=== PATIENT | male | born 1960 | race Caucasian/White ===

== ENCOUNTER 2016-12-24 21:16 | Emergency (ER) | payer OTHER ==
[~2016-12-24] VITALS: Ht 177.8 cm; Wt 86.3 kg
[~2016-12-24 21:16] MED LIST: ACET-1138 PO; ASPEC81 PO; CLB200 PO; MULT-506 PO; RXC5 PO; SNK PO
[2016-12-24 21:24] VITALS: TEMP 36.8; Ht 177.8 cm; Wt 86.3 kg
[2016-12-24] MEDS ORDERED: XYLOCAINE 1%/SOD BICARB 20 ML VIAL INFIL ONE (21:45)
[2016-12-24] MEDS ORDERED: DIPHTHERIA/TETANUS/PERTUSSIS 0.5 ML SYR/VIAL IM. ONE (21:45)
[2016-12-24] MEDS ORDERED: MoRPHine SULFATE 10 MG/ML CARP/VIAL IV STA (22:43)
[2016-12-24] MEDS ORDERED: ONDANSETRON INJ 2 MG/ML 2 ML VIAL IV STA (22:43)
--- NOTE | 2016-12-24 22:43 | DIAGNOSTIC IMAGING REPORT ---
RIGHT HAND 3 VIEWS HISTORY: R HAND CRUSH INJURY Right COMPARISON: None. FINDINGS: There is no fracture or dislocation. Soft tissue laceration between the first and second metacarpals. No radiopaque foreign bodies. IMPRESSION: Soft tissue laceration between the first and second metacarpals. Electronically signed by: Naif Parker M.D. 12/24/2016 10:42 PM Dictated Date/Time: 12/24/2016 10:41 PM
[2016-12-24 23:39] VITALS: BP 132/72; PULSE 74; O2SAT 98
--- NOTE | 2016-12-25 | EMERGENCY ROOM VISIT NOTE ---
History First contact with patient: 21:38 Chief Complaint: LACERATION/CUT (SUT/DERMABOND) Stated Complaint: CUT RT HAND History of Present Illness The patient is a 56 year old male who presents to the Emergency Room with complaints of a right hand laceration and crush injury to the hand while attempting to help his son carrying a refrigerator down steps. The patient reports generalized pain around the base of the index and third finger. He denies any paresthesias or numbness of the hand or fingers. The patient is uncertain of his last tetanus immunization. The patient is [id number] , and rates his pain a 4 out of 10. Review of Systems 10 system review was performed and was negative except for pertinent positives and negatives as indicated in history of present illness Past Medical/Surgical History Medical Problems: (1) HLD (hyperlipidemia) (2) Incidental lung nodule Surgical Problems: (1) H/O splenectomy (2) Hx of vascular surgery (3) Post-operative state (4) S/P cholecystectomy Family History Diabetes mellitus Social History Smoking Status: Never Smoker Alcohol Use: none Marital Status: Housing Status: lives with family Occupation Status: employed Current/Historical Medications No Active Prescriptions or Reported Meds Allergies Coded Allergies: No Known Allergies (Verified , 12/24/16) Physical Exam Vital Signs Date Time Temp Pulse Resp B/P Pulse Ox O2 Delivery O2 Flow Rate FiO2 12/24/16 23:39 74 20 132/72 98 12/24/16 21:24 36.8 101 18 158/93 93 Room Air Physical Exam CONSTITUTIONAL: Healthy and well nourished. Alert and oriented X 3 with positive affect. HEENT: Normocephalic, atraumatic. Pupils equal, round and reactive. NECK: Full active range of motion without discomfort. MUSCULOSKELETAL: Examination of the right hand shows a 2 cm curvilinear laceration without active bleeding. It is situated over the radial aspect of the second metacarpal. It does not extend into the webspace. Capillary refill of the fingers is less than 2 seconds. INTEGUMENTARY: No rash or other significant dermatologic conditions noted. NEUROLOGIC: Right index finger and thumb are sensory intact. Medical Decision & Procedures ER Provider Diagnostic Interpretation: My interpretation of right hand x-rays does not show any acute fractures or dislocations. No radiopaque foreign bodies appreciated. Radiologist report is as follows: RIGHT HAND 3 VIEWS HISTORY: R HAND CRUSH INJURY Right COMPARISON: None. FINDINGS: There is no fracture or dislocation. Soft tissue laceration between the first and second metacarpals. No radiopaque foreign bodies. IMPRESSION: Soft tissue laceration between the first and second metacarpals. Medications Administered Medications (Trade) Dose Ordered Sig/Santos Route Start Time Stop Time Status Last Admin Dose Admin Diphtheria/ Pertussis/Tetanus Vacc (Adacel Inj) 0.5 ml ONCE ONCE IM. 12/24/16 21:45 12/24/16 21:46 DC 12/24/16 23:14 0.5 ML Procedure Laceration repair was performed under local anesthesia after receiving verbal consent from the patient. Using buffered 1% lidocaine without epinephrine, good local anesthesia was administered. The wound was then peripherally cleansed with iodine, then irrigated with 250 mL of normal saline. Exploration of the wound does not show any laceration of the digital artery or nerve. The wound was then approximated using 5-0 nylon simple interrupted sutures. Bacitracin dressing was applied. The patient was administered Adacel IM. ED Course Patient history and physical exam were performed. Nurse's notes were reviewed. The patient refused any analgesics. X-rays of the right hand were normal. Laceration repair was performed under local anesthesia. The patient was provided additional verbal and written wound care instructions. Ice and elevation for swelling. Ibuprofen or Tylenol as needed for pain. Suture removal in 12-14 days, or seek reevaluation sooner for any signs of wound infection. The patient was happy with plan of care, voiced understanding of all discharge instructions, and denied any pain at the time of discharge. Impression Primary Impression: Laceration of right hand Departure Information Prescriptions No Active Prescriptions or Reported Meds Referrals Iraj Mcdowell D.OBerna (PCP) Forms HOME CARE DOCUMENTATION FORM, IMPORTANT VISIT INFORMATION Patient Instructions [facility] Problem Qualifiers Primary Impression: Laceration of right hand Encounter type: initial encounter Foreign body presence: without foreign body Qualified Codes: S61.411A - Laceration without foreign body of right hand , initial encounter
== END 2016-12-24 23:40 | disposition home or self-care (01) ==
LOC: C.EDB 21:18 → C.EDD 23:40
DX: S61.411A Laceration without foreign body of right hand, initial encounter (principal); X58.XXXA Exposure to other specified factors, initial encounter; Z23 Encounter for immunization; E78.5 Hyperlipidemia, unspecified; Z90.49 Acquired absence of other specified parts of digestive tract; Z98.890 Other specified postprocedural states; Z83.3 Family history of diabetes mellitus

== ENCOUNTER 2017-05-12 18:15 | Emergency (ER) | payer OTHER ==
[~2017-05-12] VITALS: Ht 177.8 cm; Wt 85.9 kg
[2017-05-12 18:24] VITALS: TEMP 36.6; Ht 177.8 cm; Wt 85.9 kg
[2017-05-12] MEDS ORDERED: LIDOCAINE/EPINEPHRINE 1% 20 ML VIAL ONE (18:46)
--- NOTE | 2017-05-12 19:04 | EMERGENCY ROOM VISIT NOTE ---
ED Visit Note First contact with patient: 18:28 CHIEF COMPLAINT: Leg laceration HISTORY OF PRESENT ILLNESS: This 57-year-old male patient presents to the emergency department with his after cutting the right calf with a chainsaw. The bleeding has stopped. Denies weakness or numbness of the right leg or foot. The patient rates the pain as stinging and 5/10. The patient denies any other injuries. The patient's Tetanus shot is up to date. REVIEW OF SYSTEMS: A 6 system review of systems was completed with positives and pertinent negatives listed in the HPI. ALLERGIES: No known drug allergies MEDICATIONS: Reviewed PMH: Otherwise healthy SOCIAL HISTORY: He does not smoke or drink alcohol PHYSICAL EXAM: Vital Signs: Reviewed Nurse's notes, vital signs stable. GENERAL : 57-year-old male, in no acute distress, well-developed, well-nourished. SKIN : There is an 8 cm long macerated laceration on the posterior aspect of the right leg. The edges gape apart with traction. There is a small amount of debris in the wound. There is mild bleeding. There is an approximately 0.5 cm superficial injury to the gastroc muscle. Fascia is visible. Normal dorsi/ plantar flexion of the foot Capillary refill less than 2 seconds. Normal sensation to light and sharp touch. EMERGENCY DEPARTMENT COURSE: I examined the patient. Verbal consent was obtained to perform the procedure. Using sterile technique the wound was cleansed with Betadine. The area was sterilely draped/ 10 ml of 1% buffered lidocaine with epinephrine was used to anesthetize the laceration on the right calf. Once the patient was anesthetized, the wound was copiously irrigated under pressure with sterile saline. The wound was explored and was as described above. The gastroc muscle and subcutaneous tissue were repaired using 3 simple interrupted 4-0 Vicryl sutures. The skin was closed using 12 simple interrupted 4-0 nylon sutures with the wound edges being well approximated. The patient tolerated the procedure well. Hemostasis was achieved. The area was cleaned with sterile saline and dressed with bacitracin ointment and bandage. The patient was instructed on the use of crutches. DIAGNOSIS: leg laceration DISCHARGE INSTRUCTIONS & TREATMENT: Minimal weightbearing on the right foot for the first 5 days. No strenuous activity. Please use crutches to get around. Keep wound clean. It is okay to gently wash the area with soapy water. Do not submerse it in water for long periods of time such as swimming, going in hot tubs or taking baths until the sutures come out. Do not allow any crusting or dried blood to accumulate on sutures. If this occurs, use a 1:1 solution of hydrogen peroxide/water on a Q-tip to clean the wound. Use an antibiotic ointment for 3-4 days, then let wound dry. Suture removal in 14 days. Return sooner for any signs of infection (increasing redness, swelling, drainage). Ice and elevate for swelling and pain. Ibuprofen 600 mg and Tylenol 1000 mg every 6 hrs for pain.
[2017-05-12] MEDS ORDERED: LIDOCAINE HCL 1% 20 ML VIAL ONE (19:41)
[2017-05-12 20:50] VITALS: BP 128/73; PULSE 82; O2SAT 98
== END 2017-05-12 20:51 | disposition home or self-care (01) ==
LOC: C.EDB 18:17 → C.EDD 20:51
DX: S81.811A Laceration without foreign body, right lower leg, initial encounter (principal); S86.121A Laceration of other muscle(s) and tendon(s) of posterior muscle group at lower leg level, right leg, initial encounter; W29.3XXA Contact with powered garden and outdoor hand tools and machinery, initial encounter

== ENCOUNTER 2017-06-03 18:15 | Emergency (ER) | payer OTHER ==
[~2017-06-03] VITALS: Ht 177.8 cm; Wt 85.3 kg
[2017-06-03 18:17] VITALS: TEMP 36.9; Ht 177.8 cm; Wt 85.3 kg
[2017-06-03] MEDS ORDERED: MULT-513 PO (18:40)
[2017-06-03] MEDS ORDERED: OMEG10007 PO (18:40)
--- NOTE | 2017-06-03 18:45 | EMERGENCY ROOM VISIT NOTE ---
ED Visit Note First contact with patient: 18:22 CHIEF COMPLAINT: Suture removal This patient returns to the ED today for removal of sutures that were placed 22 days ago. The patient was seen at [facility] and placed on antibiotics while the sutures were in. He thinks that it is now healing well. Denies any fever or chills. REVIEW OF SYSTEMS: Head: No headache, injury or neck pain. Skin: No rash, new lesions, or masses. General: No fever or chills, fatigue, loss of appetite , or significant recent weight gain or loss. PMH: Unchanged since previous visit SOCIAL HISTORY: Patient lives at home. PHYSICAL EXAM: Vital Signs: Reviewed Nurse's notes. There is a sutured wound on the right calf with no signs of infection. There is no erythema, swelling, or tenderness. EMERGENCY DEPARTMENT COURSE: The sutures were removed without any difficulty and there was no separation of the wound edges. DIAGNOSIS: Healing laceration and suture removal DISCHARGE INSTRUCTIONS AND TREATMENT: Wash any remaining crusts off of the wound today and resume your normal activities.
[2017-06-03 19:05] VITALS: BP 141/109; PULSE 94; O2SAT 94
== END 2017-06-03 19:05 | disposition home or self-care (01) ==
LOC: C.EDB 18:17 → C.EDD 19:05
DX: Z48.02 Encounter for removal of sutures (principal); S81.811D Laceration without foreign body, right lower leg, subsequent encounter; S86.1 Injury of other muscle(s) and tendon(s) of posterior muscle group at lower leg level; W29.3XXD Contact with powered garden and outdoor hand tools and machinery, subsequent encounter

== ENCOUNTER 2021-04-22 15:12 | Inpatient (IN) ==
[2021-04-22 16:09] LABS: Basophils # (auto) 0.02 K/uL (0-0.2); Basophils % (auto) 0.3 %; Hematocrit (blood only) 47.8 % (42-52); Hemoglobin 16.7 g/dL (14.0-18.0); Immature Granulocytes # (auto) 0.02 K/uL (0.00-0.02); Immature Granulocytes % (auto) 0.3 %; Lymphocytes # (auto) 1.78 K/uL (1.2-3.4); Lymphocytes % (auto) 24.2 %; Mean Corpuscular Hemoglobin 31.6 pg (25-34); Mean Corpuscular Hgb Conc 34.9 g/dL (32-36); Mean Corpuscular Volume 90.4 fL (80-100); Mean Platelet Volume 10.5 fL (7.4-10.4); Monocytes # (auto) 0.58 K/uL (0.11-0.59); Monocytes % (auto) 7.9 %; Neutrophils # (auto) 4.95 K/uL (1.4-6.5); Neutrophils % (auto) 67.3 %; Platelet Count 324 K/uL (130-400); RDW Coefficient of Variation 14.3 % (11.5-14.5); RDW Standard Deviation 47.7 fL (36.4-46.3); Red Blood Count 5.29 M/uL (4.7-6.1); White Blood Count 7.35 K/uL (4.8-10.8)
[2021-04-22 16:26] LABS: Alanine Aminotransferase 29 U/L (12-78); Albumin Level 3.4 gm/dl (3.4-5.0); Aspartate Aminotransferase 21 U/L (15-37); BUN Creatinine Ratio 12.2 (10-20); Blood Urea Nitrogen 13 mg/dl (7-18); Carbon Dioxide 23 mmol/L (21-32); Chloride 103 mmol/L (98-107); Creatinine Clr Calc Pharmacy 75.8 ml/min; Est GFR (African American) 89.2 ml/min; Est GFR (Non-African American) 76.9 ml/min; Glucose 103 mg/dl (70-99); Magnesium 1.9 mg/dl (1.8-2.4); Potassium 4.3 mmol/L (3.5-5.1); Sodium 133 mmol/L (136-145)
[2021-04-22 16:31] LABS: Albumin Globulin Ratio 0.9 (0.9-2); Alkaline Phosphatase 51 U/L (45-117); Bilirubin,Total 0.3 mg/dl (0.2-1); Globulin 3.9 gm/dl (2.5-4.0); Total Protein 7.3 gm/dl (6.4-8.2); Troponin I < 0.015 ng/ml (0-0.045)
[2021-04-22 16:32] LABS: Partial Thromboplastin Ratio 1.2; Partial Thromboplastin Time 30.6 Seconds (21.0-31.0); Prothrombin Time 9.8 Seconds (9.0-12.0)
[2021-04-22] MEDS ORDERED: SODIUM CHLORIDE 0.9% 1000ML 1,000 ML IV ONE (18:03)
--- NOTE | 2021-04-22 18:08 | Emergency Department Note ---
History of Present Illness General Chief complaint: Shortness of Breath/Dyspnea Stated complaint: COVID +, COUGH, SOB, LOW O2 Time Seen by Provider: 04/22/21 17:51 Source: patient Mode of arrival: ambulatory Limitations: no limitations History of Present Illness Maximum Pain Intensity: 2 This patient is a 61-year-old male who was diagnosed with Covid this past week and started having symptoms 1 week ago on , comes in after having a low oxygen saturation. He has been coughing a lot he said they called the ambulance when his O2 sat was 86% last night he said he felt well and vital signs look good when they arrived. He has been coughing whitish phlegm. He is a temperature of 100 point something. He said this morning his O2 sat was also low at 87%. Denies shortness of breath he has chest pain with coughing only. He has been drinking fluids. No lower extremity pain or swelling. His did have Covid also. 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 His Covid test was done on April 18 at [facility]. Home Medications Medication Instructions Recorded Confirmed Type multivitamin 1 tab PO DAILY 04/22/21 04/22/21 History xf-9-bas-epa-fish oil-vit D3 300 1 cap PO DAILY 04/22/21 04/22/21 History mg-1,000 mg-1,000 unit capsule (Fish Oil-Vit D3) tamsulosin 0.4 mg capsule 0.4 mg PO DAILY 04/22/21 04/22/21 History Allergies Allergy/AdvReac Type Severity Reaction Status Date / Time No Known Allergies Allergy Verified 12/24/16 22:00 Past Med/Surg History Medical History (Updated 04/23/21 @ 00:57 by Saud Aguero MD) HLD (hyperlipidemia) Incidental lung nodule Surgical History (Updated 04/23/21 @ 00:57 by Saud Aguero MD) H/O splenectomy Hx of vascular surgery "abdominal aortic traumatic tear repair" S/P cholecystectomy Social History Smoking Status: Never smoker Second Hand Exposure: No; Do You Dip or Chew Tobacco: No; Tobacco Cessation Education Requested by Patient: No Hx Alcohol Use: Yes Alcohol type: beer Hx Substance Use: No Preferred Language: Armenian Communication Ability: Effective Career Services Coordinator Required: No Beliefs That Will Affect Care: None Current Living Situation: Spouse Other Information That Helps Us Care for You: No Feels Safe at Home: Yes Safety Concerns: Feels Safe At This Time Assistive Devices: Glasses Review of Systems A total of 10 systems reviewed and were otherwise negative Physical Exam Vital Signs Vital Signs - 24 hr 04/22/21 15:37 04/22/21 18:00 04/22/21 19:00 Temperature 36.8 C 36.7 C Temperature Source Temporal Artery Scan Oral Pulse Rate 109 H 90 Pulse Rate [Apical] 71 Pulse Rhythm [Apical] Regular Respiratory Rate 18 18 20 Respiratory Effort / Characteristics Non-Labored Respiratory Depth Normal Blood Pressure 104/58 L 151/92 H Blood Pressure [Right Arm] 145/102 H Blood Pressure Mean 73 111 Blood Pressure Mean [Right Arm] 116 Pulse Oximetry 94 96 95 Oxygen Delivery Method Room Air Room Air Sepsis Recent Fever Within 48 Hours No Sepsis New/Unexplained Change in Mental Status No Sepsis Action Taken by Nursing No Action Required 04/22/21 20:30 04/22/21 21:02 04/22/21 21:30 Temperature 37.2 C Temperature Source Pulse Rate 92 H 93 H 97 H Pulse Rate [Apical] Pulse Rhythm [Apical] Respiratory Rate 20 24 24 Respiratory Effort / Characteristics Respiratory Depth Blood Pressure 158/109 H 136/96 130/82 Blood Pressure [Right Arm] Blood Pressure Mean 125 109 98 Blood Pressure Mean [Right Arm] Pulse Oximetry 94 95 93 Oxygen Delivery Method Sepsis Recent Fever Within 48 Hours Sepsis New/Unexplained Change in Mental Status Sepsis Action Taken by Nursing General: Well developed well nourished middle-age male who has a dry intermittent cough but in no acute distress, breathing comfortably on room air. Normal speech HEENT: Normal cephalic atraumatic. Pupils are equal round and reactive to light. Extraocular movements are intact. Oropharynx is pink with moist mucous membranes. No swelling of the mouth lips or tongue. Neck: Supple with a midline trachea. No meningeal signs or stiffness. Chest: Normal respiratory effort with no increased work of breathing. Heart: Regular rate and rhythm Abdomen: Soft nontender, nondistended without rebound guarding or rigidity. Extremities: No cyanosis clubbing or edema. No calf tenderness or assymetry Spine/Back. Non tender to palpation. No CVA tenderness Skin: Good turgor without rashes. Neurologic exam: Cranial nerves two through 12 are intact. Motor and sensation are intact and symmetrical throughout. Course Administered Medications Acetaminophen (Acetaminophen 325 Mg Tab) 650 mg PO Q4H PRN PRN Reason: Pain or Fever Stop: 05/23/21 00:00 Last Admin: 04/23/21 00:38 Dose: 650 mg Documented by: [id number] Sodium Chloride (Nss 1000ml) 1,000 mls @ 60 mls/hr IV .[id number] ONE Stop: 04/23/21 16:40 Last Admin: 04/23/21 00:39 Dose: 60 mls/hr Documented by: [id number] Discontinued Medications Sodium Chloride (Nss 1000ml) 1,000 mls @ 999 mls/hr IV .[id number] ONE Stop: 04/22/21 19:03 Last Infusion: 04/22/21 19:51 Dose: 0 mls/hr Documented by: [id number] Admin: 04/22/21 18:14 Dose: 999 mls/hr Documented by: [id number] Magnesium Sulfate/Dextrose (Magnesium Sulfate / D5w) 1 gm in 100 mls @ 50 mls/hr IV ONE STA Stop: 04/22/21 22:56 Last Infusion: 04/22/21 23:48 Dose: 0 mls/hr Documented by: [id number] Admin: 04/22/21 21:04 Dose: 50 mls/hr Documented by: [id number] Ioversol (Optiray 320 125ml) 119 ml IV ONCE ONE Stop: 04/22/21 18:55 Last Admin: 04/22/21 18:54 Dose: 1 ml Documented by: [id number] Levalbuterol HCl (Levalbuterol Tartrate 15 Gm Hfa.Aer.Ad) 2 puffs INH NOW STA Stop: 04/22/21 21:39 Last Admin: 04/22/21 23:17 Dose: 2 puffs Documented by: [id number] Medical Decision Making Differential Diagnosis Covid, pneumonia, hypoxemia, PE, sepsis, complications related to being asplenic, electrolyte or metabolic abnormality Medical Records Attestation: I reviewed the patient's medical records. Home Medications Current Medication List: was personally reviewed by me Laboratory Data Attestation: I reviewed the patient's lab results. Result diagrams: 04/22/21 15:55 04/22/21 15:55 Lab Results 04/22/21 04/22/21 04/22/21 Range/Units 15:55 15:55 15:55 WBC 7.35 (4.8-10.8) K/uL RBC 5.29 (4.7-6.1) M/uL Hgb 16.7 (14.0-18.0) g/dL Hct 47.8 (42-52) % MCV 90.4 (80-100) fL MCH 31.6 (25-34) pg MCHC 34.9 (32-36) g/dL RDW Std Deviation 47.7 H (36.4-46.3) fL RDW Coeff of Jevon 14.3 (11.5-14.5) % Plt Count 324 (130-400) K/uL MPV 10.5 H (7.4-10.4) fL Immature Gran % (Auto) 0.3 % Neut % (Auto) 67.3 % Lymph % (Auto) 24.2 % [place] % (Auto) 7.9 % Eos % (Auto) 0.0 % Baso % (Auto) 0.3 % Neut # (Auto) 4.95 (1.4-6.5) K/uL Lymph # (Auto) 1.78 (1.2-3.4) K/uL [place] # (Auto) 0.58 (0.11-0.59) K/uL Eos # (Auto) 0.00 (0-0.5) K/uL Baso # (Auto) 0.02 (0-0.2) K/uL Immature Gran # (Auto) 0.02 (0.00-0.02) K/uL PT 9.8 (9.0-12.0) Seconds INR 1.0 (0.9-1.1) APTT 30.6 (21.0-31.0) Seconds PTT Ratio 1.2 D-Dimer (0-500) ug/L FEU ABG pH (7.35-7.45) ABG pCO2 (35-46) mmHg ABG pO2 (80-95) mmHg ABG HCO3 (19-24) mmol/L ABG O2 Saturation (90-95) % ABG Base Excess (-9-1.8) mEq/L Michael Test (Pos) Barometric Pressure mm/Hg Oxygen Given Sodium 133 L (136-145) mmol/L Potassium 4.3 (3.5-5.1) mmol/L Chloride 103 (98-107) mmol/L Carbon Dioxide 23 (21-32) mmol/L Anion Gap 7.0 (3-11) BUN 13 (7-18) mg/dl Creatinine 1.03 (0.6-1.4) mg/dl Est Cr Clr Drug Dosing 75.8 ml/min Est GFR ( Amer) 89.2 ml/min Est GFR (Non-Af Amer) 76.9 ml/min BUN/Creatinine Ratio 12.2 (10-20) Glucose 103 H (70-99) mg/dl Lactate (0.4-2.0) mmol/L Calcium 8.0 L (8.5-10.1) mg/dl Magnesium 1.9 (1.8-2.4) mg/dl Total Bilirubin 0.3 (0.2-1) mg/dl AST 21 (15-37) U/L ALT 29 (12-78) U/L Alkaline Phosphatase 51 (45-117) U/L Troponin I < 0.015 (0-0.045) ng/ml Total Protein 7.3 (6.4-8.2) gm/dl Albumin 3.4 (3.4-5.0) gm/dl Globulin 3.9 (2.5-4.0) gm/dl Albumin/Globulin Ratio 0.9 (0.9-2) 04/22/21 04/22/21 04/22/21 Range/Units 15:55 18:21 21:15 WBC (4.8-10.8) K/uL RBC (4.7-6.1) M/uL Hgb (14.0-18.0) g/dL Hct (42-52) % MCV (80-100) fL MCH (25-34) pg MCHC (32-36) g/dL RDW Std Deviation (36.4-46.3) fL RDW Coeff of Jevon (11.5-14.5) % Plt Count (130-400) K/uL MPV (7.4-10.4) fL Immature Gran % (Auto) % Neut % (Auto) % Lymph % (Auto) % [place] % (Auto) % Eos % (Auto) % Baso % (Auto) % Neut # (Auto) (1.4-6.5) K/uL Lymph # (Auto) (1.2-3.4) K/uL [place] # (Auto) (0.11-0.59) K/uL Eos # (Auto) (0-0.5) K/uL Baso # (Auto) (0-0.2) K/uL Immature Gran # (Auto) (0.00-0.02) K/uL PT (9.0-12.0) Seconds INR (0.9-1.1) APTT (21.0-31.0) Seconds PTT Ratio D-Dimer 930 H* (0-500) ug/L FEU ABG pH 7.45 (7.35-7.45) ABG pCO2 31 L (35-46) mmHg ABG pO2 69 L (80-95) mmHg ABG HCO3 21 (19-24) mmol/L ABG O2 Saturation 95.2 H (90-95) % ABG Base Excess -1.7 (-9-1.8) mEq/L Michael Test POS (Pos) Barometric Pressure 736.1 mm/Hg Oxygen Given ROOM AIR Sodium (136-145) mmol/L Potassium (3.5-5.1) mmol/L Chloride (98-107) mmol/L Carbon Dioxide (21-32) mmol/L Anion Gap (3-11) BUN (7-18) mg/dl Creatinine (0.6-1.4) mg/dl Est Cr Clr Drug Dosing ml/min Est GFR ( Amer) ml/min Est GFR (Non-Af Amer) ml/min BUN/Creatinine Ratio (10-20) Glucose (70-99) mg/dl Lactate 1.0 (0.4-2.0) mmol/L Calcium (8.5-10.1) mg/dl Magnesium (1.8-2.4) mg/dl Total Bilirubin (0.2-1) mg/dl AST (15-37) U/L ALT (12-78) U/L Alkaline Phosphatase (45-117) U/L Troponin I (0-0.045) ng/ml Total Protein (6.4-8.2) gm/dl Albumin (3.4-5.0) gm/dl Globulin (2.5-4.0) gm/dl Albumin/Globulin Ratio (0.9-2) Imaging Data Attestation: I personally reviewed and interpreted this imaging study as follows : Radiologist's Impression: Chest X-Ray 04/22/21 15:42 SINGLE VIEW CHEST CLINICAL HISTORY: Dyspnea. FINDINGS: An AP, portable, upright chest radiograph is compared to chest x-ray and chest CT dated 12/12/2018. The cardiomediastinal silhouette is unremarkable noting atherosclerotic calcification of the thoracic aorta. Surgical clips project over the mediastinum. Chronic interstitial thickening is similar to previous. Foci of scarring/atelectasis are again seen throughout both lungs. No airspace consolidation or large pleural effusion is identified. No pneumothorax is seen. The skeletal structures appear osteopenic. There are numerous chronic/healed left-sided rib fractures. IMPRESSION: No acute cardiopulmonary abnormality. ACT 112: Negative or not required by law. Electronically signed by: Jaicel Francis M.D. 04/22/2021 6:35 PM Chest CTA 04/22/21 18:47 CT ANGIOGRAM OF THE CHEST CLINICAL HISTORY: Dyspnea. COMPARISON STUDY: Chest x-ray dated 04/22/2021. Chest CT scans dated 12/12/2018 and 05/13/2016. TECHNIQUE: Following the IV administration of 119 cc of Optiray 320, CT angiogram of the chest was performed from the upper abdomen to the thoracic inlet utilizing the pulmonary embolus protocol. Images are reviewed in the axial, sagittal, and coronal planes. 3-D MIPS images are created and assessed. IV contrast was administered without complication. A dose lowering technique was utilized adhering to the principles of ALARA. CT DOSE: 407.74 mGy.cm FINDINGS: Thyroid: Imaged portions of the thyroid gland are normal in size and attenuation. Thoracic aorta: There is mild atherosclerotic calcification of the thoracic aorta, which is normal in caliber and demonstrates standard 3-vessel arch anatomy. No dissection is seen. Pulmonary vasculature: The pulmonary trunk is normal in caliber. There are no filling defects identified in main, lobar, or segmental pulmonary branches to suggest pulmonary embolus. Heart: The heart is top normal in size and without pericardial effusion. There are coronary artery calcifications. Lungs and pleural spaces: Mild multifocal groundglass consolidation is seen throughout both lungs. This shows a subpleural and lower lobe predominance. No pleural effusion is identified. The trachea and central airways are clear. An 11 mm pleural-based nodule in the left lower lobe on image #91 has modestly increased in size dating back to 2016 and measured 8 mm. Mediastinum: Mildly enlarged mediastinal nodes measure up to 13 mm in short axis. Lakshmi: Enlarged bilateral hilar nodes measure up to 13 mm in short axis. Axillae: There is no axillary lymphadenopathy. Upper abdomen: A normal spleen is not identified. Numerous splenules are seen in the left upper quadrant. There is a tiny hiatal hernia. Partially visualized upper abdominal viscera is within normal limits. Skeletal structures: The skeletal structures are osteopenic. No lytic or blastic bony lesions are seen. There are numerous healed left-sided rib fractures. There is also chronic posttraumatic deformity of the left scapula. IMPRESSION: 1. There is no evidence of pulmonary embolus in the main, lobar, or segmental pulmonary arteries. 2. Multifocal groundglass consolidation is seen throughout both lungs, and is consistent with a multifocal pneumonia. Clinical correlation will be required and radiographic follow-up to resolution is recommended. 3. An 11 mm pleural-based nodule at the left lung base has modestly increased in size dating back to 2016. A follow-up chest CT in 3-4 months time is recommended to document resolution of the pneumonia and for reassessment of this left lower lobe lesion. This is indeterminant, and given the absence of a normal spleen thi s may represent an intrathoracic splenule. 4. No pleural effusion. 5. Mildly enlarged mediastinal and hilar lymph nodes are likely reactive. This can also be reassessed at follow-up. 6. Additional findings as above. ACT 112: Negative or not required by law. Electronically signed by: Jaciel Francis M.D. 04/22/2021 7:57 PM ECG Data Attestation: I personally reviewed and interpreted this ECG as follows: Indication: + chest pain Rate (beats per minute): 96 Rhythm: + normal sinus ECG Intervals/blocks: + Normal QRS, + Normal QT and + Normal SC ECG [place]: + Normal ECG ST segments: + Normal ST segments ECG Findings: no PACs or no PVCs Comparison ECG Date: no prior available MDM Narrative This patient is a 61-year-old male who is diagnosed with Covid on the but has had symptoms for about a week comes in after having low oxygen at home. He has an O2 sat of 96% here and looks well he does have a intermittent cough. I am concerned that he does have a history of a splenectomy. IV access established blood work was obtained including blood cultures and lactic acid. He has no white count. He is afebrile here but has had a temperature at home over 100. He has no significant electrolyte or metabolic abnormalities he was hydrated with normal saline. X-ray shows clear as it did not show any congestive heart failure pneumonia or pneumothorax. EKG does not show any ischemic changes. His troponin is not elevated. He has no significant acrylate or metabolic abnormality. Blood cultures were obtained as well as lactic acid. Lactic acid was not elevated. CTA of the chest was obtained as his D-dimer was elevated there is no evidence of PE has multifocal pneumonia likely consistent with Covid. I am concerned however that he is asplenic and also was hypoxemic at home I have consulted Dr. Rodrigez to likely admit him. Dr. Rodrigez saw him and he will be admitted for these measures. Given the patient will be admitted he does not meet criteria for monoclonal antibodies and in fact the patient and his declined them yesterday as well. Continuous cardiac monitoring: Given his hypoxemia and chief complaint an order was placed in EMR for continuous cardiac monitoring. The patient was noted to be in normal sinus rhythm with a rate of 95 upon my interpretation Impression & Plan COVID, H/O splenectomy, Hypoxemia, Cough Discharge Plan Visit Data Chief Complaint: Shortness of Breath/Dyspnea Stated Complaint: COVID +, COUGH, SOB, LOW O2 ED Provider: Saud Aguero Discharge Problem: COVID, H/O splenectomy, Hypoxemia, Cough Discharge Instructions Interventions: ED Discharge Assessment Last Done: 04/22/21 23:06
--- NOTE | 2021-04-22 18:37 | XRay Report ---
SINGLE VIEW CHEST CLINICAL HISTORY: Dyspnea. FINDINGS: An AP, portable, upright chest radiograph is compared to chest x-ray and chest CT dated 11/26. The cardiomediastinal silhouette is unremarkable noting atherosclerotic calcification of the thoracic aorta. Surgical clips project over the mediastinum. Chronic interstitial thickening is simil ar to previous. Foci of scarring/atelectasis are again seen throughout both lungs. No airspace consol idation or large pleural effusion is identified. No pneumothorax is seen. The skeletal structures tylor ear osteopenic. There are numerous chronic/healed left-sided rib fractures. IMPRESSION: No acute cardiopulmonary abnormality. ACT 112: Negative or not required by law. Electronically signed by: Jaciel Francis M.D. 04/22/2021 6:35 PM
[2021-04-22 18:46] LABS: D Dimer 930 ug/L FEU (0-500)
[2021-04-22] MEDS ORDERED: OPTIRAY 320 125ml IV ONE (18:54)
--- NOTE | 2021-04-22 19:59 | CT Scan Report ---
CT ANGIOGRAM OF THE CHEST CLINICAL HISTORY: Dyspnea. COMPARISON STUDY: Chest x-ray dated 04/22/2021. Chest CT scans dated 12/12/2018 and 05/13/2016. TECHNIQUE: Following the IV administration of 119 cc of Optiray 320, CT angiogram of the chest was pe rformed from the upper abdomen to the thoracic inlet utilizing the pulmonary embolus protocol. Images are reviewed in the axial, sagittal, and coronal planes. 3-D MIPS images are created and assessed. I V contrast was administered without complication. A dose lowering technique was utilized adhering to the principles of ALARA. CT DOSE: 407.74 mGy.cm FINDINGS: Thyroid: Imaged portions of the thyroid gland are normal in size and attenuation. Thoracic aorta: There is mild atherosclerotic calcification of the thoracic aorta, which is normal in caliber and demonstrates standard 3-vessel arch anatomy. No dissection is seen. Pulmonary vasculature: The pulmonary trunk is normal in caliber. There are no filling defects identif ied in main, lobar, or segmental pulmonary branches to suggest pulmonary embolus. Heart: The heart is top normal in size and without pericardial effusion. There are coronary artery ca lcifications. Lungs and pleural spaces: Mild multifocal groundglass consolidation is seen throughout both lungs. Th is shows a subpleural and lower lobe predominance. No pleural effusion is identified. The trachea and central airways are clear. An 11 mm pleural-based nodule in the left lower lobe on image #91 has mod estly increased in size dating back to 2016 and measured 8 mm. Mediastinum: Mildly enlarged mediastinal nodes measure up to 13 mm in short axis. Lakshmi: Enlarged bilateral hilar nodes measure up to 13 mm in short axis. Axillae: There is no axillary lymphadenopathy. Upper abdomen: A normal spleen is not identified. Numerous splenules are seen in the left upper quadr ant. There is a tiny hiatal hernia. Partially visualized upper abdominal viscera is within normal carranza its. Skeletal structures: The skeletal structures are osteopenic. No lytic or blastic bony lesions are see n. There are numerous healed left-sided rib fractures. There is also chronic posttraumatic deformity of the left scapula. IMPRESSION: 1. There is no evidence of pulmonary embolus in the main, lobar, or segmental pulmonary arteries. 2. Multifocal groundglass consolidation is seen throughout both lungs, and is consistent with a multi focal pneumonia. Clinical correlation will be required and radiographic follow-up to resolution is re commended. 3. An 11 mm pleural-based nodule at the left lung base has modestly increased in size dating back to 2016. A follow-up chest CT in 3-4 months time is recommended to document resolution of the pneumonia and for reassessment of this left lower lobe lesion. This is indeterminant, and given the absence of a normal spleen this may represent an intrathoracic splenule. 4. No pleural effusion. 5. Mildly enlarged mediastinal and hilar lymph nodes are likely reactive. This can also be reassessed at follow-up. 6. Additional findings as above. ACT 112: Negative or not required by law. Electronically signed by: Jaciel Francis M.D. 04/22/2021 7:57 PM
[2021-04-22] MEDS ORDERED: MAGNESIUM SULFATE / D5W 1 GM/100 ML BAG IV STA (20:57)
[2021-04-22 21:24] LABS: Base Excess ABG -1.7 mEq/L (-9-1.8); HCO3 ABG 21 mmol/L (19-24); Oxygen Saturation ABG 95.2 % (90-95); PCO2 ABG 31 mmHg (35-46); PO2 ABG 69 mmHg (80-95); pH ABG 7.45 (7.35-7.45)
[2021-04-22 21:26] LABS: Allen Test POS (Pos)
[2021-04-22] MEDS ORDERED: LEVALBUTEROL TARTRATE 15 GM HFA.AER.AD INH STA (21:38)
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
[2021-04-23] MEDS ORDERED: ACETAMINOPHEN 325 MG TAB PO PRN (00:01)
[2021-04-23] MEDS ORDERED: PROMETHAZINE HCL 12.5 MG in SODIUM CHLORIDE 0.9% 50 ML IV PRN (00:01)
[2021-04-23] MEDS ORDERED: SODIUM CHLORIDE 0.9% 1000ML 1,000 ML IV ONE (00:01)
[2021-04-23] MEDS ORDERED: REMDESIVIR 200 MG in SODIUM CHLORIDE 0.9% 210 ML IV STA (01:33)
[2021-04-23] MEDS: dexAMETHasone 6 MG in SYRINGE 0 ML IV SCH (02:23)
[2021-04-23] MEDS: SODIUM CHLORIDE 0.9% 10ML FLUSH IV SCH (04:46)
[2021-04-23 06:41] LABS: Basophils # (auto) 0.02 K/uL (0-0.2); Basophils % (auto) 0.3 %; Hematocrit (blood only) 46.5 % (42-52); Hemoglobin 16.2 g/dL (14.0-18.0); Immature Granulocytes # (auto) 0.02 K/uL (0.00-0.02); Immature Granulocytes % (auto) 0.3 %; Lymphocytes # (auto) 1.31 K/uL (1.2-3.4); Lymphocytes % (auto) 16.8 %; Mean Corpuscular Hemoglobin 31.6 pg (25-34); Mean Corpuscular Hgb Conc 34.8 g/dL (32-36); Mean Corpuscular Volume 90.8 fL (80-100); Monocytes # (auto) 0.21 K/uL (0.11-0.59); Monocytes % (auto) 2.7 %; Neutrophils # (auto) 6.23 K/uL (1.4-6.5); Neutrophils % (auto) 79.9 %; Platelet Count 310 K/uL (130-400); RDW Coefficient of Variation 14.4 % (11.5-14.5); RDW Standard Deviation 48.6 fL (36.4-46.3); Red Blood Count 5.12 M/uL (4.7-6.1); White Blood Count 7.79 K/uL (4.8-10.8)
[2021-04-23 07:13] LABS: BUN Creatinine Ratio 14.2 (10-20); Calcium 7.8 mg/dl (8.5-10.1); Creatinine Clr Calc Pharmacy 95.2 ml/min; Est GFR (African American) 109.1 ml/min; Est GFR (Non-African American) 94.1 ml/min; Potassium 4.3 mmol/L (3.5-5.1)
[2021-04-23 07:23] LABS: Thyroid Stimulating Hormone 1.95 uIu/ml (0.300-4.500)
[2021-04-23] MEDS: LEVALBUTEROL TARTRATE 15 GM HFA.AER.AD INH SCH ×4 (07:34→20:02)
[2021-04-23 07:59] LABS: Estimated Average Glucose 117 mg/dl; Hemoglobin A1C 5.7 % (4.5-5.6)
[2021-04-23] MEDS: TAMSULOSIN HCL 0.4 MG CAP PO SCH (08:18)
[2021-04-23] MEDS: MULTIVITAMIN TAB PO SCH (08:18)
[2021-04-23 08:20] LABS: Alanine Aminotransferase 29 U/L (12-78); Albumin Level 3.1 gm/dl (3.4-5.0); Alkaline Phosphatase 48 U/L (45-117); Aspartate Aminotransferase 19 U/L (15-37); Bilirubin Direct < 0.1 mg/dl (0-0.2); Bilirubin,Total 0.2 mg/dl (0.2-1)
[2021-04-23] MEDS ORDERED: guaiFENesin/DEXTROM SYRUP 200MG/20MG 10ML UDC PO SCH (13:00)
[2021-04-23] MEDS: BENZONATATE 100 MG CAPSULE PO SCH ×2 (14:01→21:56)
--- NOTE | 2021-04-23 17:11 | Hospitalist Progress Note ---
Date of Service April 23, 2021 Assessment & Plan (1) Acute hypoxemic respiratory failure: Plan: PO2 of 69 on ABG Secondary to COVID-19 pneumonia Patient unvaccinated. Remains minimally shortness of breath at rest with cough Saturating normally on room air We will continue with current management Pulmonary nodule on CT Need to follow-up as an outpatient with CAT scan as advised BPH on Flomax Hyperglycemia rule out DM Hemoglobin A1c is 5.7 (2) COVID-19: Plan: Has been receiving intravenous remdesivir and dexamethasone We will monitor LFTs (3) H/O splenectomy: Plan: Is immunosuppressed Monitor for any secondary infection (4) HLD (hyperlipidemia): Plan: Continue statin DVT prophylaxis. Lovenox subcu Full code Admission and Anticipated Discharge Date Admission Date: April 22, 2021 Subjective 04/23/2021 The patient was seen and examined in telemetry unit and in the Covid room He has been complaining of shortness of breath at rest with cough Denies any other symptoms and saturating well on room air Review of Systems Review of Systems: All systems reviewed and are unremarkable except as noted below Respiratory: + cough and + dyspnea Physical Exam Physical Exam: Lying in bed with minimal shortness of breath Constitutional: well developed, well nourished and + ill appearing Eyes: PERRL, conjunctivae normal, anicteric sclerae ENMT: external ear and nose normal, oropharynx normal Neck: trachea midline, no thyromegaly Respiratory: + respiratory distress (Minimal distress), + uses accessory muscles and + cough Auscultation: + diminished lung sounds and + crackles (Minimal crackles at the bases) Cardiovascular: Rate/Rhythm: regular rate and regular rhythm; not tachycardic Heart Sounds: normal S1 and normal S2; no murmur Gastrointestinal (Abdomen): normal bowel sounds, soft, nontender, no hepatosplenomegaly Musculoskeletal: No acute arthritis in any joint Neurologic: Alert, awake and oriented x3. Generally weak but no focal sensory and motor deficit appreciated Results & Data Results & Data ([facility]) Vital Signs (Past 12 Hours) Vital Signs Temp Pulse Pulse Resp BP Pulse Ox 04/23/21 16:12 36.6 C 97 H 19 127/89 94 04/23/21 16:00 90 04/23/21 15:27 79 18 96 04/23/21 11:27 80 18 95 04/23/21 10:44 36.6 C 86 20 131/86 95 04/23/21 07:57 79 04/23/21 07:44 36.6 C 85 20 111/63 93 04/23/21 07:34 82 18 92 04/23/21 07:04 94 Laboratory Results Short CBC 04/23/21 Range/Units 05:41 WBC 7.79 (4.8-10.8) K/uL Hgb 16.2 (14.0-18.0) g/dL Hct 46.5 (42-52) % Plt Count 310 (130-400) K/uL BMP 04/23/21 05:41 Sodium 137 Potassium 4.3 Chloride 108 H Carbon Dioxide 22 BUN 12 Creatinine 0.82 Glucose 117 H Calcium 7.8 L Liver Function 04/23/21 Range/Units 05:51 Total Bilirubin 0.2 (0.2-1) mg/dl Direct Bilirubin < 0.1 (0-0.2) mg/dl AST 19 (15-37) U/L ALT 29 (12-78) U/L Alkaline Phosphatase 48 (45-117) U/L Albumin 3.1 L (3.4-5.0) gm/dl Medications Administered Current Inpatient Medications Acetaminophen (Acetaminophen 325 Mg Tab) 650 mg PO Q4H PRN PRN Reason: Pain or Fever Stop: 05/23/21 00:00 Last Admin: 04/23/21 00:38 Dose: 650 mg Documented by: Benzonatate (Benzonatate 100 Mg Capsule) 100 mg PO TID LORI Stop: 05/23/21 13:59 Last Admin: 04/23/21 14:01 Dose: 100 mg Documented by: Guaifenesin/Dextromethorphan (Guaifenesin/Dextrom Syrup 200mg/20mg 10ml Udc) 10 ml PO Q6H LORI Stop: 05/23/21 12:59 Last Admin: 04/23/21 13:53 Dose: 10 ml Documented by: Promethazine HCl 12.5 mg/ (Sodium Chloride) 50.5 mls @ 202 mls/hr IV Q6H PRN PRN Reason: Nausea And Vomiting Stop: 05/23/21 00:00 Dexamethasone 6 mg/ Syringe 1.5 mls @ 1 mls/min IV DAILY LORI Stop: 05/23/21 01:59 Last Admin: 04/23/21 02:23 Dose: 1 mls/min Documented by: Remdesivir 100 mg/ Sodium (Chloride) 250 mls @ 250 mls/hr IV Q24H [facility]; Protocol Stop: 04/27/21 12:59 Levalbuterol HCl (Levalbuterol Tartrate 15 Gm Hfa.Aer.Ad) 2 puffs INH QIDR LORI Stop: 05/23/21 06:59 Last Admin: 04/23/21 15:27 Dose: 2 puffs Documented by: Multivitamins (Multivitamin Tab) 1 tab PO DAILY [facility] Stop: 05/23/21 08:59 Last Admin: 04/23/21 08:18 Dose: 1 tab Documented by: Sodium Chloride (Sodium Chloride 0.9% 10ml Flush) 30 ml IV Q24H [facility] Stop: 04/27/21 12:01 Last Admin: 04/23/21 04:46 Dose: 30 ml Documented by: Tamsulosin HCl (Tamsulosin Hcl 0.4 Mg Cap) 0.4 mg PO DAILY [facility] Stop: 05/23/21 08:59 Last Admin: 04/23/21 08:18 Dose: 0.4 mg Documented by:
--- NOTE | 2021-04-23 17:25 | Electrocardiogram Report ---
Test Reason : Blood Pressure : / mmHG Vent. Rate : 096 BPM Atrial Rate : 096 BPM P-R Int : 150 ms QRS Dur : 090 ms QT Int : 344 ms P-R-T Axes : 012 016 015 degrees QTc Int : 434 ms Normal sinus rhythm Normal ECG When compared with ECG of 12-DEC-2018 20:53, No significant change was found Confirmed by Kenyon Ulloa ([id number]) on 04/23/2021 5:25:13 PM Referred By: Satya Landon Confirmed By:Kenyon Ulloa
[2021-04-23] MEDS ORDERED: LEVALBUTEROL TARTRATE 15 GM HFA.AER.AD INH PRN (19:00)
[2021-04-23] MEDS ORDERED: CODEINE SULFATE 30 MG TAB PO STA (21:07)
[2021-04-23] MEDS ORDERED: guaiFENesin/DEXTROM SYRUP 200MG/20MG 10ML UDC PO PRN (21:15)
[2021-04-23] MEDS ORDERED: guaiFENesin/DEXTROM SYRUP 100MG/10MG 5ML UDC PO PRN (21:17)
[2021-04-24] MEDS ORDERED: COUGH DROP (SUGAR FREE) LOZ 24 LOZ/1 BOX BUCCAL PRN (01:57)
[2021-04-24 06:49] LABS: Basophils # (auto) 0.02 K/uL (0-0.2); Basophils % (auto) 0.2 %; Hemoglobin 16.1 g/dL (14.0-18.0); Immature Granulocytes # (auto) 0.03 K/uL (0.00-0.02); Immature Granulocytes % (auto) 0.4 %; Lymphocytes # (auto) 2.34 K/uL (1.2-3.4); Lymphocytes % (auto) 28.7 %; Mean Corpuscular Hemoglobin 31.4 pg (25-34); Mean Corpuscular Volume 89.7 fL (80-100); Mean Platelet Volume 11.1 fL (7.4-10.4); Monocytes % (auto) 11.1 %; Neutrophils # (auto) 4.85 K/uL (1.4-6.5); Neutrophils % (auto) 59.6 %; Platelet Count 301 K/uL (130-400); RDW Coefficient of Variation 14.4 % (11.5-14.5); RDW Standard Deviation 46.7 fL (36.4-46.3); Red Blood Count 5.13 M/uL (4.7-6.1); White Blood Count 8.14 K/uL (4.8-10.8)
[2021-04-24 07:13] LABS: Albumin Level 3.1 gm/dl (3.4-5.0); BUN Creatinine Ratio 23.8 (10-20); C Reactive Protein 0.82 mg/dl (0-0.29); Creatinine Clr Calc Pharmacy 134.6 ml/min; Est GFR (African American) 125.8 ml/min; Est GFR (Non-African American) 108.5 ml/min; Potassium 3.8 mmol/L (3.5-5.1)
[2021-04-24 07:16] LABS: Albumin Globulin Ratio 0.8 (0.9-2); Bilirubin,Total 0.3 mg/dl (0.2-1); Globulin 3.7 gm/dl (2.5-4.0); Total Protein 6.9 gm/dl (6.4-8.2)
[2021-04-24] MEDS: TAMSULOSIN HCL 0.4 MG CAP PO SCH (08:50)
[2021-04-24] MEDS: MULTIVITAMIN TAB PO SCH (08:50)
[2021-04-24] MEDS: BENZONATATE 100 MG CAPSULE PO SCH ×3 (08:50→20:28)
[2021-04-24] MEDS: dexAMETHasone 6 MG in SYRINGE 0 ML IV SCH (08:50)
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
[2021-04-24] MEDS ORDERED: REMDESIVIR 100 MG in SODIUM CHLORIDE 0.9% 230 ML IV SCH (12:00)
[2021-04-24] MEDS: SODIUM CHLORIDE 0.9% 10ML FLUSH IV SCH (12:01)
[2021-04-25 06:38] LABS: BUN Creatinine Ratio 22.7 (10-20); Calcium 7.9 mg/dl (8.5-10.1); Creatinine Clr Calc Pharmacy 111.5 ml/min; Est GFR (African American) 116.4 ml/min; Est GFR (Non-African American) 100.4 ml/min
[2021-04-25 06:39] LABS: C Reactive Protein 0.6 mg/dl (0-0.29)
[2021-04-25] MEDS: MULTIVITAMIN TAB PO SCH (09:06)
[2021-04-25] MEDS: BENZONATATE 100 MG CAPSULE PO SCH (09:06)
[2021-04-25] MEDS: dexAMETHasone 6 MG in SYRINGE 0 ML IV SCH (09:06)
[2021-04-25] MEDS: TAMSULOSIN HCL 0.4 MG CAP PO SCH (09:07)
--- NOTE | 2021-04-25 11:21 | Discharge Summary ---
Date of Service April 25, 2021 Admission HPI Per Admitting Provider History obtained from patient and records. Medical history significant for BPH, hyperlipidemia. Last week patient had cough symptoms productive of white sputum with low-grade fever, chills. Patient was sick from COVID-19. Patient unvaccinated. Outpatient COVID-19 test from 3 days ago was positive. Worsening shortness of breath with cough symptoms without chest pain. O2 sats 86 on room air at home. Patient directed to ER by PCPs office. Lowest O2 sats at the ER was 93 on room air. Medical History as above Surgical History : Splenectomy, prostate biopsy, cholecystectomy, hip replacement, vascular procedure for abdominal aortic traumatic tear Family History : DM, thyroid disease Personal/Social history : Non-smoker, occasional EtOH intake, retired, lives with Admission Exam Per Admitting Provider GENERAL: Comfortable, no respiratory distress SKIN: Normal color, warm HEENT: [place] palpebral conjunctivae, no ptosis, dry buccal mucosa NECK : Supple, no tenderness CHEST : Decreased breath sounds, occasional expiratory wheeze, no tenderness HEART : RRR, no obvious murmurs ABDOMEN: Some distention, nontender EXTREMITIES : No LE swelling/tenderness, no other conspicuous deformities noted NEUROLOGIC : Coherent, no facial asymmetry, no other gross focality Principal Diagnosis COVID pneumonia Discharge Exam General:. NAD, well developed HEENT:. Normal Conjunctiva, EOMI Lungs:. CTA, no wheezing or crackles Psych:. 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 A follow-up chest CT in 3-4 months time is recommended to document resolution of the pneumonia and for reassessment of this left lower lobe lesion. This is indeterminant, and given the absence of a normal spleen this may represent an intrathoracic splenule. BPH on Flomax Hyperglycemia: Hemoglobin A1c is 5.7 DVT prophylaxis. Lovenox SC Full code Likely discharge tomorrow Total Time Total Time Spent Total Time Spent (In Minutes): 40 Discharge Plan Discharge Items Patient Disposition: Home - Self-Care Reason For Visit: HYPOXEMIA, COVID Discharge Diagnosis: COVID pneumonia with hypoxia Condition on Discharge: Good Activity: Resume your previous activity Non-emergency contact: Primary Care Provider Call non-emergency contact if: your symptoms worsen Follow-up/Referrals: Satya Landon DO [Primary Care Provider] - Diet: Regular Addtl Attending Provider Instructions: Please follow up with your Family doctor in 1-2 weeks Home Isolation COVID-19 Instructions The following information about Home Isolation is from the CDC Website: https://www.cdc.gov/coronavirus/2019-ncov/hcp/rwbsrkst-tbhpieg-eclamc.html Stay home except to get medical care People who are mildly ill with COVID-19 are able to isolate at home during their illness. You should restrict activities outside your home, except for getting medical care. Do not go to work, school, or public areas. Avoid using public transportation, ride-sharing, or taxis. Separate yourself from other people and animals in your home People: As much as possible, you should stay in a specific room and away from other people in your home. Also, you should use a separate bathroom, if available. Animals: You should restrict contact with pets and other animals while you are sick with COVID-19, just like you would around other people. Although there have not been reports of pets or other animals becoming sick with COVID-19, it is still recommended that people sick with COVID-19 limit contact with animals until more information is known about the virus. When possible, have another member of your household care for your animals while you are sick. If you are sick with COVID-19, avoid contact with your pet, including petting, snuggling, being kissed or licked, and sharing food. If you must care for your pet or be around animals while you are sick, wash your hands before and after you interact with pets and wear a face mask. Call ahead before visiting your doctor If you have a medical appointment, call the healthcare provider and tell them that you have or may have COVID-19. This will help the healthcare providers office take steps to keep other people from getting infected or exposed. Wear a face mask You should wear a face mask when you are around other people (e.g., sharing a room or vehicle) or pets and before you enter a healthcare providers office. If you are not able to wear a face mask (for example, because it causes trouble breathing), then people who live with you should not stay in the same room with you, or they should wear a face mask if they enter your room. Cover your coughs and sneezes Cover your mouth and nose with a tissue when you cough or sneeze. Throw used tissues in a lined trash can. Immediately wash your hands with soap and water for at least 20 seconds or, if soap and water are not available, clean your hands with an alcohol-based hand train gateman that contains at least 60% alcohol. Clean your hands often Wash your hands often with soap and water for at least 20 seconds, especially after blowing your nose, coughing, or sneezing; going to the bathroom; and before eating or preparing food. If soap and water are not readily available, use an alcohol-based hand train gateman with at least 60% alcohol, covering all surfaces of your hands and rubbing them together until they feel dry. Soap and water are the best option if hands are visibly dirty. Avoid touching your eyes, nose, and mouth with unwashed hands. Avoid sharing personal household items You should not share dishes, drinking glasses, cups, eating utensils, towels, or bedding with other people or pets in your home. After using these items, they should be washed thoroughly with soap and water. Clean all high-touch surfaces everyday High touch surfaces include counters, tabletops, doorknobs, bathroom fixtures, toilets, phones, keyboards, tablets, and bedside tables. Also, clean any surfaces that may have blood, stool, or body fluids on them. Use a household cleaning spray or wipe, according to the label instructions. Labels contain instructions for safe and effective use of the cleaning product including precautions you should take when applying the product, such as wearing gloves and making sure you have good ventilation during use of the product. Monitor your symptoms Seek prompt medical attention if your illness is worsening (e.g., difficulty breathing).Beforeseeking care, call your healthcare provider and tell them that you have, or are being evaluated for, COVID-19. Put on a face mask before you enter the facility. These steps will help the healthcare providers office to keep other people in the office or waiting room from getting infected or e xposed. Ask your healthcare provider to call the local or state health department. Persons who are placed under active monitoring or facilitated self- monitoring should follow instructions provided by their local health department or occupational health professionals, as appropriate. When working with your local health department check their available hours. If you have a medical emergency and need to call 911, notify the dispatch personnel that you have, or are being evaluated for COVID-19. If possible, put on a face mask before emergency medical services arrive. Discontinuing home isolation Patients with confirmed COVID-19 should remain under home isolation precautions until the risk of secondary transmission to others is thought to be low. The decision to discontinue home isolation precautions should be made on a pndx-do-[facility]pm[facility] basis, in consultation with healthcare providers and [facility] and local health departments. Pending Studies at Discharge: No Stand-Alone Forms: [facility], Smoking Cessation Medications and DC Order Prescriptions: New benzonatate [Tessalon Perles] 100 mg capsule 100 mg PO TID PRN (Reason: Cough) Qty: 60 RF: 0 Continued multivitamin Tablet 1 tab PO DAILY RF: 0 tamsulosin 0.4 mg capsule 0.4 mg PO DAILY RF: 0 [id number]-fish oil-vit D3 [Fish Oil-Vit D3] 300-1,000-1,000 mg-mg-unit Capsule 1 cap PO DAILY RF: 0 Discharge Orders: Discharge Order (Routine); Ordered 04/25/21 Ordered By: Garrison Conde Admission Data Admit Date/Time: 04/22/21 21:37 Attending Provider: Garrison Conde Admit Provider: Kalpesh Quinones Primary Care Provider: Satya Landon Other Providers: Kalpesh Quinones
[2021-04-25] MEDS: SODIUM CHLORIDE 0.9% 10ML FLUSH IV SCH (11:46)
== END 2021-04-25 12:48 | disposition home or self-care (01) | DRG 177 ==
LOC: ED 15:12 → SUATTDRO 21:37 → 2E 21:37